=== PATIENT | female | born 1980 | race Two or more races ===

== ENCOUNTER → 2020-11-05 | Outpatient (REF) | LOC: M LABSMTC 09:12 | PROVIDERS: ATTEND Pediatrics | DX: Z11.52 Encounter for screening for COVID-19 (principal) ==

== ENCOUNTER → 2020-12-22 | Outpatient (REF) ==
[2020-12-22 09:03] LABS: RSV AMPLIFICATION NEGATIVE (NEGATIVE)
== END ==
LOC: M EMP 07:55
PROVIDERS: ATTEND Family Medicine
DX: Z20.822 Contact with and (suspected) exposure to COVID-19 (principal)

== ENCOUNTER → 2020-12-26 | Outpatient (REF) | LOC: M LABSMTC 10:44 | PROVIDERS: ATTEND Pediatrics | DX: Z11.52 Encounter for screening for COVID-19 (principal); Z20.822 Contact with and (suspected) exposure to COVID-19 ==

== ENCOUNTER → 2021-01-12 | Outpatient (REF) | LOC: M EMP 14:05 | PROVIDERS: ATTEND Family Medicine | DX: Z20.822 Contact with and (suspected) exposure to COVID-19 (principal) ==

== ENCOUNTER → 2021-01-23 | Outpatient (REF) | LOC: M LABSMTC 09:53 | PROVIDERS: ATTEND Pediatrics | DX: Z20.822 Contact with and (suspected) exposure to COVID-19 (principal) ==

== ENCOUNTER 2021-01-27 08:06 | Outpatient (CLI) | payer OTHER ==
[~2021-01-27] VITALS: Ht 172.7 cm; Wt 77.1 kg
[~2021-01-27 08:06] MED LIST: ALBUTEROL 90 MCG/ACT 8GM HFA INHALER INH PRN; ALBUTEROL SULFATE 2.5 MG/0.5 ML INH NEB SOLN INH PRN; CASIRIVIMAB (REGN10933) 600 MG, IMDEVIMAB (REGN10987) 600 MG in NS 250 ML IV ONE; EPINEPHrine INJ 1 MG/ML 1ML AMP IM PRN; NS 1,000 ML IV SCH; diphenhydrAMINE 50MG/ML VIAL (J1200) IV PRN; methylPREDNISolone 125MG 2ML VIAL IV PRN
[2021-01-27 08:48] VITALS: BP 126/80
[2021-01-27 09:18] VITALS: BP 107/74
[2021-01-27 09:48] VITALS: BP 106/70
[2021-01-27 10:48] VITALS: BP 113/79
== END 2021-01-27 10:48 | disposition home or self-care (01) ==
LOC: M OPCLI4PR 08:06
PROVIDERS: ATTEND Nurse Practitioner Family
DX: U07.1 COVID-19 (principal)

== ENCOUNTER → 2021-11-15 | Outpatient (REF) | LOC: M EMP 09:56 | PROVIDERS: ATTEND Family Medicine | DX: Z20.822 Contact with and (suspected) exposure to COVID-19 (principal) ==